=== PATIENT | female | born 1945 | race Caucasian/White ===

== ENCOUNTER → 2016-11-21 | Outpatient (CLI) | payer MEDICARE, OTHER ==
[~2016-11-21] MED LIST: ALPR0.5T7 PO; ALPR2TAB9 PO; ATOR10TA PO; ATOR40TA70 PO; CIPR-225 PO; NAPR-243 PO; ONDA4TAB8 SL; OXYC-197 PO; TRM50T PO
--- NOTE | 2016-11-22 19:36 | Diagnostic Imaging Report ---
Bilateral screening mammogram The current study was also evaluated with a Computer Aided Detection (CAD) system. Indication: Screening. No current complaints stated on the questionnaire. COMPARISON: 11/21/15 FINDINGS: The breasts are composed of heterogeneously dense parenchyma which may decrease mammographic sensitivity. There are benign-appearing calcifications seen. Postsurgical changes in the left breast are noted. There is evidence of prior left axillary dissection as well. Allowing for technique and positional differences, no suspicious change is seen. IMPRESSION: No significant change. ACR BI-RADS Category 2: Benign findings. Result letter will be mailed to the patient. Note: At least 10% of breast cancer is not imaged by mammography. Dictated by: Dictated on workstation # [id number]
== END ==
LOC: RAD 09:23
PROVIDERS: ATTEND Internal Medicine
DX: Z12.31 Encounter for screening mammogram for malignant neoplasm of breast (principal)
CPT/HCPCS: 77067

== ENCOUNTER → 2017-11-22 | Outpatient (CLI) | payer MEDICARE, OTHER ==
--- NOTE | 2017-11-22 13:33 | Diagnostic Imaging Report ---
INDICATION: Routine screening. Comparison is made with prior mammogram from 11/21/2016 and 11/21/2015. 2-D and 3-D bilateral screening mammography was performed with CAD. The current study was also evaluated with a Computer Aided Detection (CAD) system. FINDINGS: Both breasts are heterogeneously dense, limiting the sensitivity of mammography. Post lumpectomy changes in the upper left breast are again noted. There are benign calcifications present. No mass or malignant-appearing microcalcifications are seen. Surgical clips in the left axilla are noted. IMPRESSION: No mammographic features suspicious for malignancy are identified. ACR BI-RADS Category 2: Benign findings. Result letter will be mailed to the patient. Note: At least 10% of breast cancer is not imaged by mammography. Dictated by: Dictated on workstation # [id number]
== END ==
LOC: RAD 07:41
PROVIDERS: ATTEND Internal Medicine
DX: Z12.31 Encounter for screening mammogram for malignant neoplasm of breast (principal)
CPT/HCPCS: 77067

== ENCOUNTER → 2018-12-05 | Outpatient (CLI) | payer MEDICARE, OTHER ==
[~2018-12-05] MED LIST changes: -OXYC-197 PO; +OXYC1TAB87 PO
--- NOTE | 2018-12-05 17:18 | Diagnostic Imaging Report ---
INDICATION: Routine screening. COMPARISON: Comparison is made with prior mammogram from 11/22/2017 and 11/21/2016. 2-D and 3-D bilateral screening mammography was performed. The current study was also evaluated with a Computer Aided Detection (CAD) system. 3-D tomosynthesis was also performed and reviewed. FINDINGS: Both breasts are heterogeneously dense, limiting the sensitivity of mammography. Lumpectomy changes in the upper left breast are again noted. The overall parenchymal pattern appears to be stable. There are benign calcifications. No mass or malignant-appearing microcalcifications are seen. Axillae are unremarkable. IMPRESSION: No mammographic features suspicious for malignancy are identified. ACR BI-RADS Category 2: Benign findings. Result letter will be mailed to the patient. Note: At least 10% of breast cancer is not imaged by mammography. Dictated by: Dictated on workstation # [id number]
== END ==
LOC: RAD 08:18
PROVIDERS: ATTEND Internal Medicine
DX: Z12.31 Encounter for screening mammogram for malignant neoplasm of breast (principal); Z85.3 Personal history of malignant neoplasm of breast; Z98.890 Other specified postprocedural states
CPT/HCPCS: 77067

== ENCOUNTER → 2019-12-07 | Outpatient (CLI) | payer MEDICARE, OTHER ==
--- NOTE | 2019-12-07 10:56 | Diagnostic Imaging Report ---
INDICATION: Routine screening. Comparison is made with prior mammogram from 12/05/2018 and 11/22/2017. 2-D and 3-D bilateral screening mammography was performed with CAD. Both breast are heterogeneously dense, limiting the sensitivity of mammography. Postlumpectomy changes in the upper left breast are again noted. Overall parenchymal pattern appears to be stable. No new mass or malignant appearing microcalcifications are seen. There are benign calcifications bilaterally. Left axilla contains multiple surgical clips. Right axilla is unremarkable. IMPRESSION: BI-RADS Category 2 No mammographic features suspicious for malignancy are identified ACR BI-RADS Category 2: Benign findings. Result letter will be mailed to the patient. Note: At least 10% of breast cancer is not imaged by mammography. Dictated by: Dictated on workstation # [id number]
== END ==
LOC: RAD 08:03
PROVIDERS: ATTEND Internal Medicine
DX: Z12.31 Encounter for screening mammogram for malignant neoplasm of breast (principal)
CPT/HCPCS: 77063; 77067

== ENCOUNTER 2020-02-15 13:28 | Emergency (ER) | payer MEDICARE, OTHER ==
[~2020-02-15] VITALS: Ht 160 cm; Wt 51.3 kg
[2020-02-15] MEDS ORDERED: TETANUS,DIPTH,PERTUSS P/F (BOOSTRIX) 0.5 ML VIAL IM ONE (15:00)
--- NOTE | 2020-02-15 15:00 | ED Fall/Injury ---
General Chief Complaint: Trauma-Non Activation Stated Complaint: FALL Nursing Triage Note: Multiple superficial abrasions. Hematoma noted to L eyebrow. Headache. Discomfort to base of neck. Source: patient Exam Limitations: no limitations History of Present Illness Date Seen by Provider: Feb 15, 2020 Time Seen by Provider: 14:58 Initial Comments To ER with reports of a fall. She struck her face on the sidewalk. She has an abrasion/hematoma to the left eyebrow. No loss of consciousness but she does have a headache and some neck pain. Small abrasion to the posterior left shoulder. Full range of motion of the shoulder and no pain. A few superficial abrasions to the hands but she can clench her fist and has full range of motion without significant pain. Location Injury Occurred: [facility] Occurred: just prior to arrival Severity: moderate Injuries/Pain Location: head, face, neck Context: tripped (tripped on uneven sidewalk) Loss of Consciousness: no loss of consciousness Associated Symptoms (Fall): Headache Allergies and Home Medications Allergies Coded Allergies: sulfamethoxazole (Unverified Allergy, Unknown, 05/03/15) trimethoprim (Unverified Allergy, Unknown, 05/03/15) Home Medications Alprazolam 0.5 Mg Tablet, 0.5 MG PO HS, (Reported) Atorvastatin Calcium 40 Mg Tablet, 40 MG PO HS, (Reported) Patient Home Medication List Home Medication List Reviewed: Yes Review of Systems Review of Systems Constitutional: see HPI Eyes: No Symptoms Reported Ears, Nose, Mouth, Throat: no symptoms reported Respiratory: no symptoms reported Cardiovascular: no symptoms reported Genitourinary: no symptoms reported Musculoskeletal: see HPI Skin: see HPI Psychiatric/Neurological: No Symptoms Reported Past Dudyodz-Tpwztz-Ivulqa Hx Patient Social History Alcohol Use: Denies Use Recreational Drug Use: No Smoking Status: Never a Smoker 2nd Hand Smoke Exposure: No Recent Foreign Travel: No Contact w/Someone Who Travel: No Recent Infectious Disease Expo: No Recent Hopitalizations: No Past Medical History Surgeries: Yes (r hand) Breast, Orthopedic Respiratory: No Cardiac: Yes High Cholesterol Neurological: No Reproductive Disorders: No Sexually Transmitted Disease: No Gastrointestinal: No Musculoskeletal: No Endocrine: No Cancer: Yes Breast Psychosocial: Yes Sleep Difficulties Blood Disorders: No Physical Exam Vital Signs Vital Signs - First Documented 02/15/20 14:05 Temp 36.6 Pulse 91 Resp 18 B/P (MAP) 152/74 (100) Pulse Ox 100 O2 Delivery Room Air Capillary Refill : Less Than 3 Seconds Height, Weight, BMI Height: 5'3" Weight: 125lbs. oz. 56.797751uw; 20.00 BMI Method:Stated General Appearance: WD/WN, no apparent distress HEENT: PERRL/EOMI, normal ENT inspection, other (hematoma left lateral eyebrow. Small abrasion left superior posterior shoulder with full range of motion and no pain. Few abrasions to the palms of her hands with full range of motion no swelling or deformity.) Neck: non-tender, full range of motion Respiratory: no respiratory distress, no accessory muscle use Gastrointestinal: normal bowel sounds, non tender Neurologic/Psychiatric: alert, normal mood/affect, oriented x 3 Skin: normal color, warm/dry Amando Coma Score Best Eye Response: (4) Open Spontaneously Best Verbal Response: (5) Oriented Best Motor Response: (6) Obeys Commands [place] Total: 15 Progress/Results/Core Measures Results/Orders My Orders Orders - SHAUNNA SIMEON APRN Ct Head/Cervical Spine Wo (02/15/20 14:53) Dipht,Pertuss(Acell),Tet Adult (Boostrix (02/15/20 15:00) Vital Signs/I&O 02/15/20 14:05 Temp 36.6 Pulse 91 Resp 18 B/P (MAP) 152/74 (100) Pulse Ox 100 O2 Delivery Room Air Blood Pressure Mean: 100 Departure Impression Primary Impression: Abrasion Additional Impression: Hematoma Disposition: 01 HOME, SELF-CARE Condition: Stable Departure-Patient Inst. Decision time for Depature: 15:40 Referrals: GUANACO DYKES MD (PCP/Family) Primary Care Physician Patient Instructions: Contusion (DC) Add. Discharge Instructions: 1. Return to ER for any confusion worsening headache or any other concerns. Call Dr. Dykes today to make an appointment for follow-up later this week. All discharge instructions reviewed with patient and/or family. Voiced understanding. SHAUNNA SIMEON APRN Feb 15, 2020 15:00
--- NOTE | 2020-02-15 15:35 | Diagnostic Imaging Report ---
PROCEDURE: CT head and CT cervical spine without contrast. TECHNIQUE: Multiple contiguous axial images were obtained through the brain and cervical spine without the use of intravenous contrast. Sagittal and coronal reformations through the cervical spine were then performed. Auto Exposure Controls were utilized during the CT exam to meet ALARA standards for radiation dose reduction. INDICATION: Fall with head and neck pain with hematoma in the region of the left eyebrow. COMPARISON: Correlation is made with prior CT from 12/31/2011. FINDINGS: CT head: The ventricles and sulci are within normal limits. No sulcal effacement or midline shift is identified. No acute intra-axial or extra-axial hemorrhage is detected. Cisterns are patent. Visualized paranasal sinuses are clear. IMPRESSION: No acute intracranial process is detected. CT cervical spine: Curvature of the cervical spine is normal. There is minimal retrolisthesis of C3 on C4 and C4 on C5. There is multilevel degenerative disc and facet disease. No fractures are identified. Prevertebral tissues are within normal limits. Odontoid is intact. IMPRESSION: Cervical spondylosis. No acute bony abnormality is detected. Dictated by: Dictated on workstation # [id number]
[2020-02-15 15:49] VITALS: BP 157/76
== END 2020-02-15 15:51 | disposition home or self-care (01) ==
LOC: EDUNIT# 13:28 → ER 13:29
DX: S00.12XA Contusion of left eyelid and periocular area, initial encounter (principal); S40.212A Abrasion of left shoulder, initial encounter; S60.512A Abrasion of left hand, initial encounter; S60.511A Abrasion of right hand, initial encounter; E78.00 Pure hypercholesterolemia, unspecified; R40.2410 Glasgow coma scale score 13-15, unspecified time; Z23 Encounter for immunization; Z85.3 Personal history of malignant neoplasm of breast; Z88.2 Allergy status to sulfonamides; Z88.1 Allergy status to other antibiotic agents; W18.39XA Other fall on same level, initial encounter; W22.8XXA Striking against or struck by other objects, initial encounter
CPT/HCPCS: 70450; 72125; 90715

== ENCOUNTER → 2020-06-21 | Outpatient (CLI) | payer MEDICARE, OTHER ==
--- NOTE | 2020-06-21 15:53 | Diagnostic Imaging Report ---
INDICATION: Right-sided pelvis pain. COMPARISON: CT abdomen and pelvis from 05/03/2015. TECHNIQUE: 3 views of the bilateral SI joints. FINDINGS: SI joints are symmetric without ankylosis or marginal erosions. Sacral ala appear intact. Stable spiculated sclerotic focus in the right iliac wing due to a benign bone island which was present in 2014. Scattered pelvic phleboliths. No advanced degenerative changes within the hips. IMPRESSION: No structural changes of sacroiliitis or sacral insufficiency fracture. Dictated by: Dictated on workstation # [id number]
== END ==
LOC: RAD 09:43
PROVIDERS: ATTEND Internal Medicine
DX: R10.2 Pelvic and perineal pain (principal)
CPT/HCPCS: 72202

== ENCOUNTER 2020-08-14 09:06 | Emergency (ER) | payer MEDICARE, OTHER ==
[~2020-08-14] VITALS: Ht 160 cm; Wt 52.1 kg
[2020-08-14 10:02] LABS: CHLORIDE 104 MMOL/L (98-107); POTASSIUM 3.6 MMOL/L (3.6-5.0); SODIUM 142 MMOL/L (135-145)
[2020-08-14 10:04] LABS: CALCIUM 9.7 MG/DL (8.5-10.1); GLUCOSE 97 MG/DL (70-105)
[2020-08-14 10:05] LABS: CARBON DIOXIDE 24 MMOL/L (21-32)
[2020-08-14 10:08] LABS: CREATININE SERUM 0.78 MG/DL (0.60-1.30); GFR ESTIMATED > 60
[2020-08-14 10:09] LABS: BUN/CREATININE RATIO 18
--- NOTE | 2020-08-14 10:20 | Diagnostic Imaging Report ---
Indication: Left-sided chest pain and muscle aches. Fatigue. Comparison made to prior study from February 142015. Findings: The diaphragms are flattened compatible air trapping. There are surgical clips projecting over the left chest and in the left axilla. There is mild enlargement of the cardiac silhouette. There is no alveolar consolidation. There is no large effusion or pneumothorax. Central pulmonary vascularity appears appropriate. IMPRESSION: Pulmonary hyperinflation suggesting air trapping. There are no current findings of focal infiltrate. Pulmonary vascularity appears appropriate. Prior surgical clips project over the left chest and left axilla. Dictated by: Dictated on workstation # [id number]
--- NOTE | 2020-08-14 10:43 | ED Chest Pain ---
General Chief Complaint: Chest Pain Stated Complaint: CP,SOB Nursing Triage Note: pt presents to ed with complaints of l sided stabbing cp when she woke up this am around 7. pt reports it lasted about 1-2 minutes and then subsided. 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 pt also reports she has struggled with generalized malaise, britton, and dizziness since recieving her second dose of her covid vac on 07/24. Nursing Sepsis Screen: No Definite Risk Source: patient Exam Limitations: no limitations History of Present Illness Date Seen by Provider: Aug 14, 2020 Time Seen by Provider: 10:15 Initial Comments Patient is a 75-year-old female who presents to the emergency department today with a chief complaint of chest pain located just underneath her left breast that occurred just after she woke up this morning and raise herself up out of bed. Patient describes the pain as a very sharp pain that almost "took my scooby ath away". She states that it lasted 2 to 4 minutes. She states it went away completely on its own. She denies any concurrent nausea, diaphoresis. Patient states she never had a pain like that before. She states that she waited a while after taking some aspirin and decided to come to the emergency room because she was concerned about the chest pain. Patient also complains of persistent generalized malaise, body aches, left-sided headache and dizziness since receiving her second Covid vaccine on July 24. Patient states that she has just not "felt herself". Patient has noted in follow-up with her primary care physician that she has had quite elevated blood pressures in the 170s and 180s systolic over 80s. She states she has never been diagnosed with hypertension in the past. She has quite a history of stress over the course of the last 18 months with the of her and also moving homes. She has been under increased stress. Patient also states that she has had quite a bit of hair loss as well as well as issues with brittle nails. She denies nausea, vomiting, diarrhea. No unintentional weight loss or weight gain. No recent black or bloody stools. All other review of systems reviewed and negative except as stated. 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 NTG SL VETERINARY DENTIST: No Associated Symptoms: dizziness, fatigue Allergies and Home Medications Allergies Coded Allergies: sulfamethoxazole (Unverified Allergy, Unknown, 05/03/15) trimethoprim (Unverified Allergy, Unknown, 05/03/15) Home Medications Alprazolam 0.5 Mg Tablet, 0.5 MG PO HS, (Reported) Atorvastatin Calcium 40 Mg Tablet, 40 MG PO HS, (Reported) Patient Home Medication List Home Medication List Reviewed: Yes Review of Systems Review of Systems Constitutional: see HPI, dizziness, malaise Respiratory: No Symptoms Reported Cardiovascular: Chest Pain Gastrointestinal: No Symptoms Reported Genitourinary: No Symptoms Reported Musculoskeletal: muscle pain Skin: change in hair/nails Psychiatric/Neurological: No Symptoms Reported All Other Systems Reviewed Negative Unless Noted: Yes Past Ssqgmvm-Libzml-Hwnhfl Hx Patient Social History Alcohol Use: Occasionally Uses Smoking Status: Never a Smoker 2nd Hand Smoke Exposure: No Recent Infectious Disease Expo: No Recent Hopitalizations: No Past Medical History Surgeries: Yes (r hand) Breast, Orthopedic Respiratory: No Cardiac: Yes High Cholesterol Neurological: No Reproductive Disorders: No Sexually Transmitted Disease: No Genitourinary: No Gastrointestinal: No Musculoskeletal: No Endocrine: No Cancer: Yes Breast Psychosocial: Yes Sleep Difficulties Blood Disorders: No Physical Exam Vital Signs Vital Signs - First Documented 08/14/20 08/14/20 09:20 09:28 Temp 35.9 Pulse 87 Resp 20 B/P (MAP) 186/97 (126) Pulse Ox 99 O2 Delivery Room Air Capillary Refill : NONE Height, Weight, BMI Height: 5'3" Weight: 125lbs. oz. 56.027454yk; 20.00 BMI Method:Stated General Appearance: No Apparent Distress, WD/WN HEENT: PERRL/EOMI Neck: Normal Inspection, Non Tender, Supple Respiratory: Lungs Clear, Normal Breath Sounds, No Accessory Muscle Use, No Respiratory Distress Cardiovascular: Regular Rate, Rhythm, Other (No reproducible chest wall tenderness) Gastrointestinal: Non Tender, Soft Extremity: Normal Inspection, Normal Range of Motion, Non Tender, No Pedal Edema Neurologic/Psychiatric: Alert, Oriented x3, No Motor/Sensory Deficits, Normal Mood/Affect Skin: Normal Color, Warm/Dry Progress/Results/Core Measures Results/Orders Lab Results Laboratory Tests Test 08/14/20 09:16 Range/Units Sodium Level 142 135-145 MMOL/L Potassium Level 3.6 3.6-5.0 MMOL/L Chloride Level 104 98-107 MMOL/L Carbon Dioxide Level 24 21-32 MMOL/L Anion Gap 14 5-14 MMOL/L Blood Urea Nitrogen 14 7-18 MG/DL Creatinine 0.78 0.60-1.30 MG/DL Estimat Glomerular Filtration Rate > 60 BUN/Creatinine Ratio 18 Glucose Level 97 70-105 MG/DL Calcium Level 9.7 8.5-10.1 MG/DL Thyroid Stimulating Hormone (TSH) 2.69 0.35-4.94 UIU/ML Free Thyroxine 1.03 0.70-1.48 NG/DL My Orders Orders - PAMELA LÓPEZ MD Basic Metabolic Panel (08/14/20 09:53) Chest 1 View, Ap/Pa Only (08/14/20 09:53) Thyroid Stimulating Hormone (08/14/20 10:20) Triiodothryonine T3 Free (08/14/20 10:20) Free T4 (Free Thyroxine) (08/14/20 10:20) Vital Signs/I&O 08/14/20 08/14/20 09:20 09:28 Temp 35.9 Pulse 87 Resp 20 B/P (MAP) 186/97 (126) Pulse Ox 99 O2 Delivery Room Air Blood Pressure Mean: 126 Progress Progress Note : Time: 11:23 Progress Note Patient seen and examined, 75-year-old female presents with an episode of sharp left-sided chest pain that spontaneously resolved. Also generalized fatigue, malaise, headache and feelings of being overall "unwell". Patient evaluation today includes a physical exam, basic metabolic panel, thyroid function studies, chest x-ray and EKG. Her EKG is reviewed and is completely unremarkable normal sinus rhythm without ectopy or ST segment elevations or depressions. Chest x- ray is also unremarkable. BMP and thyroid functions are within normal limits. Patient is reassured in the department that there are no findings concerning for admission or further work-up. She verbalizes understanding and will follow up regarding her blood pressure with her primary care physician. All questions are sought and answered and patient is stable for discharge. Initial ECG Impression Date: Aug 14, 2020 Initial ECG Impression Time: 09:20 Initial ECG Rate: 79 Initial ECG Rhythm: Normal Sinus Initial ECG Intervals: Normal Initial ECG Impression: Normal Diagnostic Imaging Diagonstic Imaging: Xray Plain Films/CT/US/NM/MRI: chest Comments [facility]. [place], [place] NAME: MAUREEN HOLDEN [facility] REC#: [id number] PT STATUS: REG ER : 1945 PHYSICIAN: PAMELA LÓPEZ MD ADMIT DATE: 08/14/20/ER Draft Date of Exam:08/14/20 CHEST 1 VIEW, AP/PA ONLY Indication: Left-sided chest pain and muscle aches. Fatigue. Comparison made to prior study from February 142015. Findings: The diaphragms are flattened compatible air trapping. There are surgical clips projecting over the left chest and in the left axilla. There is mild enlargement of the cardiac silhouette. There is no alveolar consolidation. There is no large effusion or pneumothorax. Central pulmonary vascularity appears appropriate. IMPRESSION: Pulmonary hyperinflation suggesting air trapping. There are no current findings of focal infiltrate. Pulmonary vascularity appears appropriate. Prior surgical clips project over the left chest and left axilla. Dictated on workstation # [id number] Dict: 08/14/20 1011 Trans: 08/14/20 1018 [employer] [facility] [employer] [id number] Interpreted by: MARSHALL CRUZ MD Electronically signed by: Departure Impression Primary Impression: Chest wall pain Disposition: 01 HOME, SELF-CARE Condition: Stable Departure-Patient Inst. Decision time for Depature: 11:24 Referrals: GUANACO DYKES MD (PCP/Family) Primary Care Physician Patient Instructions: Chest Pain That Is Not Caused by the Heart (DC) Add. Discharge Instructions: Continue your home daily medications as previously prescribed. Take iwew-auk-ijnujze Tylenol 2 extra strength, every 4-6 hours as needed for headache. Please come back to the emergency department if you experience any further episodes of chest pain especially associated with nausea, shortness of breath sweating or any other emergent concerning symptoms. Copy Copies To 1: GUANACO DYKES MD, KATHRYN M MD Aug 14, 2020 10:43
[2020-08-14 10:56] LABS: FREE T4 (FREE THYROXINE) 1.03 NG/DL (0.70-1.48)
[2020-08-14 11:31] VITALS: BP 156/90
== END 2020-08-14 11:31 | disposition home or self-care (01) ==
LOC: EDUNIT# 09:06 → ER 09:08
DX: R07.89 Other chest pain (principal); I10 Essential (primary) hypertension; E78.00 Pure hypercholesterolemia, unspecified; Z88.2 Allergy status to sulfonamides; Z88.1 Allergy status to other antibiotic agents; Z85.3 Personal history of malignant neoplasm of breast
CPT/HCPCS: 36415; 71045; 80048; 84439; 84443; 84481; 93005

== ENCOUNTER 2020-09-30 12:45 | Outpatient (RCR) | payer MEDICARE, OTHER ==
--- NOTE | 2020-09-30 09:23 | Diagnostic Imaging Report ---
PROCEDURE: CT head without contrast. TECHNIQUE: Multiple contiguous axial images were obtained through the brain without the use of intravenous contrast. Auto Exposure Controls were utilized during the CT exam to meet ALARA standards for radiation dose reduction. INDICATION: Left-sided headache. Correlation is made with prior CT from 02/15/2020. Ventricles and sulci are within normal limits. Patchy periventricular hypodensities are noted consistent with chronic microvascular ischemia. There is no sulcal effacement or midline shift. No acute intra-axial or extra-axial hemorrhage is detected. Cisterns are patent. Visualized paranasal sinuses are clear. IMPRESSION: Changes of chronic microvascular ischemia. No acute intracranial process is detected. Dictated by: Dictated on workstation # [id number]
== END 2020-12-29 | disposition home or self-care (01) ==
LOC: RAD 12:45
PROVIDERS: ATTEND Internal Medicine
DX: I67.82 Cerebral ischemia (principal); R00.2 Palpitations
CPT/HCPCS: 70450; 93225; 93226

== ENCOUNTER → 2020-12-07 | Outpatient (CLI) | payer MEDICARE, OTHER ==
--- NOTE | 2020-12-07 14:12 | Diagnostic Imaging Report ---
INDICATION: Routine screening. Comparison is made with prior mammogram from 12/07/2019 and 12/05/2018. 2-D and 3-D bilateral screening mammography was performed with CAD. Both breasts are heterogeneously dense, limiting the sensitivity of mammography. Lumpectomy changes in the left breast appears stable. No new mass or malignant appearing microcalcifications are seen. Left axilla contains multiple surgical clips. Right axilla is unremarkable. IMPRESSION: BI-RADS Category 2 No mammographic features suspicious for malignancy are identified. ACR BI-RADS Category 2: Benign findings. Result letter will be mailed to the patient. Note: At least 10% of breast cancer is not imaged by mammography. Dictated by: Dictated on workstation # [id number]
== END ==
LOC: RAD 09:45
PROVIDERS: ATTEND Internal Medicine
DX: Z12.31 Encounter for screening mammogram for malignant neoplasm of breast (principal)
CPT/HCPCS: 77063; 77067

== ENCOUNTER → 2021-03-08 | Outpatient (CLI) | payer MEDICARE, OTHER ==
--- NOTE | 2021-03-08 17:18 | Diagnostic Imaging Report ---
CLINICAL INDICATION: Patient with chronic low back pain. EXAM: MRI of the lumbar spine without contrast. Sequences include sagittal T2, sagittal T1, sagittal T2 fat-sat, and axial T2. COMPARISON: None. FINDINGS: There is no acute lumbar spine fracture or dislocation. There is Modic type I degenerative signal changes involving the L2-L3 endplates. There is no significant paraspinal soft tissue abnormality. There are small cysts involving the right kidney. The visualized portions of the distal thoracic spinal cord, conus medullaris, and cauda equina nerve roots are unremarkable. The conus medullaris tip is seen at the upper L2 vertebral body level. There are hypertrophic spurs and facet arthropathy. T12-L1: There is a small central posterior disk spur. There is mild to moderate bilateral facet arthropathy. There is mild central canal narrowing. There is no significant neural foramen narrowing. L1-L2: There is a diffuse disk bulge with superimposed broad right paracentral disk protrusion/herniation and bilateral facet arthropathy. There is mild loss of disk space height. There is no significant neural foramen narrowing. There is mild to moderate central canal stenosis. L2-L3: There is subtle grade 1 retrolisthesis of L2 on L3. There is a diffuse disk bulge with moderate loss of disk space height. There are hypertrophic disk spurs extending in the far right lateral region and into the right foraminal region. There is moderate bilateral facet arthropathy/hypertrophy and ligamentum flavum buckling. There is mild central canal narrowing. There is severe right neural foramen narrowing and mild left neural foramen narrowing. L3-L4: There is moderate bilateral facet arthropathy and ligamentum flavum buckling. There is moderate central canal stenosis. There is mild bilateral neural foramen narrowing. L4-L5: There is moderate bilateral facet arthropathy and ligamentum flavum buckling. There is no significant central canal stenosis. There is no significant central canal or neural foramen narrowing. L4-L5: There is moderate bilateral facet arthropathy. There is no significant central spinal canal or neural foramen narrowing. IMPRESSION: 1: There is no acute lumbar spine fracture. 2: There is multilevel lumbar spine degenerative disease, as described above. Dictated by: Dictated on workstation # [id number]
== END ==
LOC: RAD 09:30
PROVIDERS: ATTEND Internal Medicine
DX: M47.26 Other spondylosis with radiculopathy, lumbar region (principal)
CPT/HCPCS: 72148

== ENCOUNTER 2021-05-09 14:11 | Outpatient (CLI) | payer MEDICARE, OTHER ==
[~2021-05-09] VITALS: Ht 160 cm; Wt 51.3 kg
== END 2021-05-09 14:43 | disposition home or self-care (01) ==
LOC: PREOP 14:11
PROVIDERS: ATTEND Specialist
DX: Z01.818 Encounter for other preprocedural examination (principal)

== ENCOUNTER 2021-05-12 06:58 | Day surgery (SDC) | payer MEDICARE, OTHER ==
[~2021-05-12] VITALS: Ht 160 cm; Wt 51.3 kg
[2021-05-12] MEDS: TETRACAINE 0.5% OPHTH SOLN 4 ML BTL (SINGLE DOSE ONLY) OU PRN ×4 (07:11→07:27)
[2021-05-12] MEDS ORDERED: LIDOCAINE PF 1% 2 ML VIAL IR PRN (07:15)
[2021-05-12] MEDS ORDERED: POVIDONE (BETADINE) OPHTH SOLN 5% 30 ML OP ONE (07:15)
[2021-05-12] MEDS ORDERED: TIMOLOL MALEATE 0.5% 5 ML (TIMOPTIC) BTL OU PRN (07:15)
[2021-05-12] MEDS ORDERED: MOXIFLOXACIN OPHTH SOLN 5 MG/ML 0.3 ML SYRINGE OP ONE (07:15)
[2021-05-12] MEDS: TROPICAMIDE 1% OPH SOLN (MYDRIACYL) 15 ML BTL OP SCH ×3 (07:17→07:27)
[2021-05-12] MEDS: PHENYLEPHRINE 10% OPHTH (NEO-SYN) 5 ML BTL OU SCH ×3 (07:17→07:27)
[2021-05-12 07:24] VITALS: BP 159/79
[2021-05-12] MEDS ORDERED: MIDAZOLAM 2 MG/2 ML (VERSED) VIAL ONE (08:08)
--- NOTE | 2021-05-12 08:22 | Ophthalmologist Pre-Op Note ---
Pre-Operative Progress Note H&P Reviewed The H&P was reviewed, patient examined and no changes noted. Date H&P Reviewed: May 12, 2021 Time H&P Reviewed: 08:21 Pre-Op Dx Cataract, Left Eye LILIAN AGUIRRE MD May 12, 2021 08:22
[2021-05-12] MEDS ORDERED: acetaZOLAMIDE ER 500 MG CAP (DIAMOX SEQUELS) PO ONE (08:30)
--- NOTE | 2021-05-12 08:49 | Ophthalmology Operative Report ---
Cataract removal/placement IOL PREOPERATIVE DIAGNOSIS: Cataract Left Eye POSTOPERATIVE DIAGNOSIS: Cataract Left Eye PROCEDURE: Cataract removal and placement of posterior chamber implant, left eye SURGEON: Nils Aguirre ANESTHESIA: Topical with sedation COMPLICATIONS: None ESTIMATED BLOOD LOSS: Minimal DESCRIPTION OF PROCEDURE: After proper informed consent was obtained, the patient, a 76 female, was taken to the Operating Room and the left eye was anesthetized with tetracaine. The left eye was then prepped and draped in the usual manner. A wire lid speculum was placed. A paracentesis was made at the left hand position. Preservative free lidocaine was injected into the anterior chamber followed by viscoelastic. A clear corneal incision was made in the temporal position. A capsulorrhexis was preformed and the central nuclear and cortical material were removed. The posterior capsule was polished and an Anthony 20.0 AU00T0 was placed into the capsular bag. The residual viscoelastic was aspirated and balanced saline solution was injected into the anterior chamber. Moxifloxacin was injected into the anterior chamber. The wound was checked and found to be water tight. The patient tolerated the procedure well without complications. NILS AGUIRRE MD May 12, 2021 08:49
[2021-05-12 08:55] VITALS: BP 147/74
--- NOTE | 2021-05-12 13:06 | Anesthesia-General Post-Op ---
MAC Patient Condition Mental Status/LOC: Same as Preop Cardiovascular: Satisfactory Nausea/Vomiting: Absent Respiratory: Satisfactory Pain: Controlled Complications: Absent Post Op Complications Complications None Follow Up Care/Instructions Patient Instructions None needed. Anesthesiology Discharge Order Discharge Order Patient is doing well, no complaints, stable vital signs, no apparent adverse anesthesia problems. No complications reported per nursing. CHUCK CASTRO CRNA May 12, 2021 13:05
== END 2021-05-12 08:58 ==
LOC: SDC 06:58
PROVIDERS: ATTEND Specialist
DX: H25.12 Age-related nuclear cataract, left eye (principal); Z79.899 Other long term (current) drug therapy
CPT/HCPCS: 66984; V2632

== ENCOUNTER 2021-06-02 06:53 | Day surgery (SDC) | payer MEDICARE, OTHER ==
[~2021-06-02] VITALS: Ht 160 cm; Wt 51.3 kg
[2021-06-02] MEDS ORDERED: LIDOCAINE PF 1% 2 ML VIAL IR PRN (07:00)
[2021-06-02] MEDS ORDERED: TIMOLOL MALEATE 0.5% 5 ML (TIMOPTIC) BTL OU PRN (07:00)
[2021-06-02] MEDS ORDERED: POVIDONE (BETADINE) OPHTH SOLN 5% 30 ML OP ONE (07:00)
[2021-06-02] MEDS ORDERED: MOXIFLOXACIN OPHTH SOLN 5 MG/ML 0.3 ML SYRINGE OP ONE (07:00)
[2021-06-02] MEDS: TETRACAINE 0.5% OPHTH SOLN 4 ML BTL (SINGLE DOSE ONLY) OU PRN ×4 (07:03→07:25)
[2021-06-02 07:04] VITALS: BP 152/68
[2021-06-02] MEDS: PHENYLEPHRINE 10% OPHTH (NEO-SYN) 5 ML BTL OU SCH ×3 (07:11→07:25)
[2021-06-02] MEDS: TROPICAMIDE 1% OPH SOLN (MYDRIACYL) 15 ML BTL OP SCH ×3 (07:11→07:26)
--- NOTE | 2021-06-02 08:07 | Ophthalmologist Pre-Op Note ---
Pre-Operative Progress Note H&P Reviewed The H&P was reviewed, patient examined and no changes noted. Date H&P Reviewed: Jun 02, 2021 Time H&P Reviewed: 08:07 Pre-Op Dx Cataract, Right Eye LILIAN AGUIRRE MD Jun 02, 2021 08:07
[2021-06-02] MEDS ORDERED: MIDAZOLAM 2 MG/2 ML (VERSED) VIAL ONE (08:10)
--- NOTE | 2021-06-02 08:27 | Ophthalmology Operative Report ---
Cataract removal/placement IOL PREOPERATIVE DIAGNOSIS: Cataract Right Eye POSTOPERATIVE DIAGNOSIS: Cataract Right Eye PROCEDURE: Cataract removal and placement of posterior chamber implant, right eye SURGEON: Nils Aguirre ANESTHESIA: Topical with sedation COMPLICATIONS: None ESTIMATED BLOOD LOSS: Minimal DESCRIPTION OF PROCEDURE: After proper informed consent was obtained, the patient, a 76 female, was taken to the Operating Room and the right eye was anesthetized with tetracaine. The right eye was then prepped and draped in the usual manner. A wire lid speculum was placed. A paracentesis was made at the left hand position. Preservative free lidocaine was injected into the anterior chamber followed by viscoelastic. A clear corneal incision was made in the temporal position. A capsulorrhexis was preformed and the central nuclear and cortical material were removed. The posterior capsule was polished and Anthony 20.0 AU00T0 IOL was placed into the capsular bag. The residual viscoelastic was aspirated and balanced saline solution was injected into the anterior chamber. Moxifloxacin was injected into the anterior chamber. The wound was checked and found to be water tight. The patient tolerated the procedure well without complications. NILS AGUIRRE MD Jun 02, 2021 08:27
[2021-06-02] MEDS ORDERED: acetaZOLAMIDE ER 500 MG CAP (DIAMOX SEQUELS) PO ONE (08:30)
[2021-06-02 08:35] VITALS: BP 156/64
--- NOTE | 2021-06-02 11:30 | Anesthesia-General Post-Op ---
MAC Patient Condition Mental Status/LOC: Same as Preop Cardiovascular: Satisfactory Nausea/Vomiting: Absent Respiratory: Satisfactory Pain: Controlled Complications: Absent Post Op Complications Complications None Follow Up Care/Instructions Patient Instructions None needed. Anesthesiology Discharge Order Discharge Order Patient is doing well, no complaints, stable vital signs, no apparent adverse anesthesia problems. No complications reported per nursing. ROSE GIANG CRNA Jun 02, 2021 11:30
== END 2021-06-02 08:36 | disposition home or self-care (01) ==
LOC: SDC 06:53
PROVIDERS: ATTEND Specialist
DX: H25.9 Unspecified age-related cataract (principal)
CPT/HCPCS: 66984; V2632

== ENCOUNTER → 2021-12-11 | Outpatient (CLI) | payer MEDICARE, OTHER ==
--- NOTE | 2021-12-11 12:08 | Diagnostic Imaging Report ---
INDICATION: Routine screening. Comparison is made with prior mammogram 12/07/2020 and 12/07/2019. 2-D and 3-D bilateral screening mammography was performed with CAD. Both breasts are heterogeneously dense, limiting the sensitivity of mammography. Lumpectomy changes on the left are again noted. No mass or malignant-appearing microcalcifications are identified. There are benign calcifications bilaterally. Axillae are unremarkable. IMPRESSION: No mammographic features suspicious for malignancy are identified. ACR BI-RADS Category 2: Benign findings. Result letter will be mailed to the patient. Note: At least 10% of breast cancer is not imaged by mammography. BI-RADS Category 2 Dictated by: Dictated on workstation # [id number]
== END ==
LOC: RAD 10:30
PROVIDERS: ATTEND Internal Medicine
DX: Z12.31 Encounter for screening mammogram for malignant neoplasm of breast (principal); Z85.3 Personal history of malignant neoplasm of breast
CPT/HCPCS: 77063; 77067

== ENCOUNTER → 2022-05-03 | Outpatient (CLI) | payer MEDICARE, OTHER | LOC: CARD 08:00 | PROVIDERS: ATTEND Nurse Practitioner Family | DX: R00.2 Palpitations (principal); I10 Essential (primary) hypertension | CPT/HCPCS: 93005; 93225; 93226 ==

== ENCOUNTER 2022-07-21 10:30 | Emergency (ER) | payer OTHER, MEDICARE ==
[~2022-07-21] VITALS: Ht 160 cm; Wt 51.0 kg
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
[2022-07-21] MEDS: ACETAMINOPHEN 325 MG TABLET PO ONE ×2 (11:37→11:54)
[2022-07-21] MEDS ORDERED: ONDANSETRON 4 MG (ZOFRAN) ORAL DISSOLVE TAB PO ONE (11:45)
[2022-07-21] MEDS ORDERED: HYDROcodone/APAP 5 MG/325 MG (LORTAB) TAB PO ONE (11:45)
[2022-07-21] MEDS ORDERED: ACHD5005 PO (11:52)
[2022-07-21] MEDS ORDERED: ONDA4TAB11 SL (11:52)
[2022-07-21 12:34] VITALS: BP 133/78
== END 2022-07-21 12:35 | disposition home or self-care (01) ==
LOC: EDUNIT# 10:30 → ER 10:31
DX: S59.001A Unspecified physeal fracture of lower end of ulna, right arm, initial encounter for closed fracture (principal); Z79.899 Other long term (current) drug therapy; V43.52XA Car driver injured in collision with other type car in traffic accident, initial encounter; Y92.410 Unspecified street and highway as the place of occurrence of the external cause
CPT/HCPCS: 29105; 73090; 99284; A4565

== ENCOUNTER → 2022-12-11 | Outpatient (CLI) | payer MEDICARE, OTHER ==
[~2022-12-11] MED LIST changes: +ACHD5005 PO; +ONDA4TAB11 SL
--- NOTE | 2022-12-11 10:39 | Diagnostic Imaging Report ---
INDICATION: Postmenopausal female. TECHNIQUE: DEXA scan of the lumbar spine and bilateral hips COMPARISON: 02/02/2016 FINDINGS: AP Spine L2-L4: [BMD (g/cm2): 0.996] [T-Score: -1.7] [Z-Score: 0.5] [BMD Previous: 0.856] [BMD % Change: 16.4*] LT Hip Neck: [BMD (g/cm2): 0.711] [T-Score: -2.3] [Z-Score: -0.1] LT Hip Total: [BMD (g/cm2):0.758] [T-Score:-2.0] [Z-Score: 0.2] [BMD Previous: 0.789] [BMD % Change: -3.9] RT Hip Neck: [BMD (g/cm2):0.667] [T-Score:-2.7] [Z-Score:-0.4] RT Hip Total: [BMD (g/cm2):0.714] [T-score:-2.3] [Z-Score:-0.2] [BMD Previous:0.711] [BMD % Change:0.4] *Indicates significant change from prior examination based on 95% confidence level. World Health Organization criteria for BMD interpretation classify patients as Normal (T-score at or above -1.0), Osteopenic (T-score between -1.0 and -2.5) or Osteoporotic (T-score at or below -2.5). LIMITATIONS AND MODIFICATION: Degenerative changes in the lumbar spine likely falsely elevates bone density.. FRACTURE RISK (FRAX SCORE): History of fracture as an adult. The ten year probability of (%): Major Osteoporotic Fracture: [24.1] Hip Fracture: [8.6] IMPRESSION: 1. Osteoporosis. 2. Increase in bone density in the lumbar spine may be due to degenerative change. There is no significant change in the hips. 3. See below National Osteoporosis Foundation guidelines on when to potentially initiate pharmacologic therapy. Based on the National Osteoporosis Foundation Guidelines, pharmacologic treatment should be initiated in any of the following, unless clinical conditions suggest otherwise: * Any patient with prior fragility fracture of the hip or vertebrae. A spine fracture indicates 5X risk for subsequent spine fracture and 2X risk for subsequent hip fracture. * Osteoporosis (T-score <-2.5). * Postmenopausal women and men age 50 and older with low bone mass/osteopenia (T-score between -1.0 and -2.5) by DXA and 10-year major osteoporotic fracture greater than 20% or a 10-year probability of hip fracture greater than 3%. These fracture risks are supplied above in the FRAX score, if applicable. * Clinician judgement and/or patient preferences may indicate treatment for people with 10-year fracture probabilities above or below these levels. Dictated by: Dictated on workstation # [id number]
--- NOTE | 2022-12-11 14:20 | Diagnostic Imaging Report ---
INDICATION: Routine screening. COMPARISON: 12/11/2021 and 12/07/2020. TECHNIQUE: 2D and 3D bilateral screening mammography was performed with CAD. FINDINGS: Both breasts are heterogeneously dense, limiting the sensitivity of mammography. Post therapeutic changes in the upper left breast are again noted. No mass or malignant-appearing microcalcifications are seen. There are benign calcifications. The axillae are stable. IMPRESSION: No mammographic features suspicious for malignancy are identified. ACR BI-RADS Category 2: Benign findings. Result letter will be mailed to the patient. Note: At least 10% of breast cancer is not imaged by mammography. Dictated by: Dictated on workstation # [id number]
== END ==
LOC: RAD 09:30
PROVIDERS: ATTEND Obstetrics & Gynecology
DX: Z12.31 Encounter for screening mammogram for malignant neoplasm of breast (principal); M81.0 Age-related osteoporosis without current pathological fracture; Z78.0 Asymptomatic menopausal state; Z85.3 Personal history of malignant neoplasm of breast
CPT/HCPCS: 77063; 77067; 77080

== ENCOUNTER → 2023-01-10 | Outpatient (CLI) | payer MEDICARE, OTHER ==
[~2023-01-10] VITALS: Ht 160 cm; Wt 51.4 kg
[~2023-01-10] MED LIST changes: +DENOSUMAB 60 MG/1 ML (PROLIA) SQ ONE
[2023-01-10 15:46] VITALS: BP 114/95
== END ==
LOC: SDC 15:01
PROVIDERS: ATTEND Obstetrics & Gynecology
DX: M81.0 Age-related osteoporosis without current pathological fracture (principal)
CPT/HCPCS: 96372